=== PATIENT | female | born 1970 ===

== ENCOUNTER 2017-12-05 08:30 | Inpatient (IN) | payer OTHER ==
[~2017-12-05] VITALS: Ht 175.3 cm; Wt 78.0 kg
[2017-12-10] MEDS ORDERED: NORFLEX100MG PO (12:24)
[2017-12-10] MEDS ORDERED: GABAPENTIN100 MG PO (12:24)
[2017-12-10] MEDS ORDERED: DICLOFENAC POTA50 MG PO (12:24)
[2017-12-10] MEDS ORDERED: TANDEM PLUS CA1 EACH PO (12:24)
[2017-12-10] MEDS ORDERED: CIPRO500 MG PO (12:24)
== END 2017-12-10 14:20 | DRG 742 ==
LOC: OB/GYN 12-08 07:00 → O/R 12-08 07:00 → SURH 12-08 08:30 → OB/GYN 12-08 14:27
PROVIDERS: Obstetrics & Gynecology; Urology
PROC: 0USGXZZ Reposition Vagina, External Approach (ICD-10-PCS; 2017-12-08)
PROC: 0TQB8ZZ Repair Bladder, Via Natural or Artificial Opening Endoscopic (ICD-10-PCS; 2017-12-08)
PROC: 0T788DZ Dilation of Bilateral Ureters with Intraluminal Device, Via Natural or Artificial Opening Endoscopic (ICD-10-PCS; 2017-12-08)
PROC: 0UT97ZZ Resection of Uterus, Via Natural or Artificial Opening (ICD-10-PCS; principal; 2017-12-08 08:45)
PROC: 0UT57ZZ Resection of Right Fallopian Tube, Via Natural or Artificial Opening (ICD-10-PCS; 2017-12-08 08:45)
DX: N87.1 Moderate cervical dysplasia (principal); N99.72 Accidental puncture and laceration of a genitourinary system organ or structure during other procedure; M96.89 Other intraoperative and postprocedural complications and disorders of the musculoskeletal system; N73.6 Female pelvic peritoneal adhesions (postinfective); D64.89 Other specified anemias

== ENCOUNTER 2017-12-12 09:39 | Outpatient (CLI) | payer OTHER ==
[~2017-12-12 09:39] MED LIST: CIPRO500 MG PO; DICLOFENAC POTA50 MG PO; GABAPENTIN100 MG PO; NORFLEX100MG PO; TANDEM PLUS CA1 EACH PO
== END 2017-12-12 12:44 | disposition home or self-care (01) ==
LOC: SONOGRAMA 09:39
DX: M25.512 Pain in left shoulder (principal)

== ENCOUNTER 2017-12-19 08:09 | Outpatient (CLI) | payer OTHER | END 2017-12-19 08:16 | disposition home or self-care (01) | LOC: RX STUDY 08:09 | DX: E04.1 Nontoxic single thyroid nodule (principal) ==

== ENCOUNTER 2017-12-28 11:07 | Outpatient (CLI) | payer OTHER | END 2017-12-28 11:12 | disposition home or self-care (01) | LOC: LAB 11:07 | DX: N30.00 Acute cystitis without hematuria (principal) ==